=== PATIENT | male | born 1975 | race African-American/Black ===

== ENCOUNTER 2020-08-25 02:41 | Observation (INO) | payer SELFPAY ==
[2020-08-25 03:15] LABS: #Eosinphils 0.2 thou/uL (0.0-0.7); #Lymphocytes 3.7 thou/uL (1.20-3.40); #Monocytes 0.5 thou/uL (0.11-0.59); #Neutrophils 6.8 thou/uL (1.40-6.50); %Basophils 0.3 % (0.0-1.0); %Eosinophils 1.6 % (0.0-10.0); %Lymphocytes 33.3 % (21.0-51.0); %Monocytes 4.5 % (0.0-10.0); %Neutrophils 60.3 % (42.0-75.0); Hemoglobin 12.4 g/dL (14.0-18.0); Mean Corpuscular HGB CONC 32.4 g/dL (32.0-36.0); Mean Corpuscular Volume 86.7 fL (78.0-98.0); Platelet Count 221 thou/uL (130-400); RBC Distribution Width 13.8 % (11.5-14.5); Red Blood Cell (RBC) Count 4.42 mill/uL (4.70-6.10); White Blood Cell (WBC) Count 11.2 thou/uL (4.8-10.8)
[2020-08-25 03:37] LABS: ALT (SGPT) 16 U/L (8-55); AST (SGOT) 17 U/L (5-34); Albumin 3.5 g/dL (3.5-5.0); Alcohol Less than 10 mg/dL (Less than 10); Alkaline Phosphatase 44 U/L (40-110); Anion Gap 18 mmol/L (10-20); BUN (Urea Nitrogen) 16 mg/dL (8.9-20.6); Bilirubin, Total 0.4 mg/dL (0.2-1.2); CK (CPK) 207 U/L (30-200); Calc. Creatinine Clearance 0 mL/min (70-130); Carbon Dioxide 19 mmol/L (22-29); Chloride 106 mmol/L (98-107); Globulin 3.5 g/dL (2.4-3.5); Glucose 246 mg/dL (70-105); Potassium 3.4 mmol/L (3.5-5.1); Sodium 140 mmol/L (136-145)
[2020-08-25] MEDS ORDERED: Ketorolac Tromethamine 30 MG/ML VIAL ONE ×2 (04:53→04:55)
[2020-08-25] MEDS ORDERED: cloNIDine 0.1 MG TAB ONE (05:32)
[2020-08-25 05:37] LABS: Troponin I 0.022 ng/mL (< 0.028)
[2020-08-25 07:22] VITALS: BP 169/76; TEMP 97.5; BMI 39.5
--- NOTE | 2020-08-25 08:06 | CT ---
PRELIMINARY REPORT/[facility]/EMERGENCY AFTER HOURS PROCEDURE EXAM: CT Head Without Intravenous Contrast. CLINICAL HISTORY: WOKE UP WITH LEG NUMBNESS, SAYS CANT MOVE LEGS. SENSATION INTACT. FEELS ANXIOUS TECHNIQUE: Axial computed tomography images of the head/brain without intravenous contrast. COMPARISON: None provided. FINDINGS: BRAIN: No acute intraparenchymal hemorrhage. No mass lesion. No CT evidence for acute territorial infarct. N o midline shift or extra-axial collection. VENTRICLES: No hydrocephalus. ORBITS: The orbits are unremarkable. SINUSES AND MASTOIDS: Moderate opacification of the maxillary sinuses. The mastoid air cells are clear.. SOFT TISSUES: No significant facial or scalp soft tissue swelling evident. No radiopaque foreign body is seen. BONES: No acute skull fracture. IMPRESSION: No acute intracranial abnormality. ELECTRONICALLY SIGNED BY: Josette Reyes DO Aug 25, 2020 6:23:43 AM [employer] This report is intended for review by the ordering physician only, in accordance of law. If you recei ve this report in error, please call [facility] at [phone]. FINAL REPORT I agree with the preliminary report provided by [facility]. No acute intracranial abnormality d emonstrated. Transcribed Date/Time: 08/25/2020 8:49 AM
--- NOTE | 2020-08-25 08:47 | RAD ---
Exam: Chest one view HISTORY:Leg numbness. Difficulty moving legs. Anxiety. Comparison: 12/08/2019 FINDINGS: Cardiac silhouette:Cardiomegaly. Aorta: Slightly elongated aorta. Pulmonary vessels: Slightly prominent Costophrenic angles: Clear Lungs: No masses or consolidation. Pneumothorax: None Osseous abnormalities: None IMPRESSION: Cardiomegaly. Pulmonary vascular prominence. Correlate for volume overload. Transcribed Date/Time: 08/25/2020 9:10 AM
[2020-08-25 08:52] LABS: Troponin I 0.036 ng/mL (< 0.028)
[2020-08-25] MEDS ORDERED: Calcium Chloride 1 GM/10 ML Abboject SYRINGE ONE (11:55)
[2020-08-25] MEDS ORDERED: EPINEPHrine 1 MG/10 ML Abboject SYRINGE ONE (11:55)
[2020-08-25] MEDS ORDERED: Sodium Bicarb 50 MEQ/50 ML Abboject 8.4% SYRINGE ONE (11:55)
--- NOTE | 2020-08-25 12:06 | PDOC.BPN ---
- Brief Progress Note Encounter Date: 08/25/20 Encounter Time: 11:40 Code Davian called when pt was unresponsive with sudden bradycardia leading to asystole. CPR/ACLS protocol initiated and pt intubated and placed on BVM ventiliation. Epinephrine x 8 doses, bicarbonate, 1 x defibrillation, Atropine without successful ROSC. ACLS continued for approximately 25min but unable to obtain a pulse or perfusing rhythm. The patient after exhausting all ACLS protocol. I notified the pt's fiancee of pt's with the warehouse receiving supervisor, tele charge nurse present. Decedent affairs notified and decision on autopsy pending.
[2020-08-25 16:25] LABS: SARS-CoV-2 MS2 Positive; SARS-CoV-2 N Gene Negative; SARS-CoV-2 S Gene Negative; SARS-CoV-2 by NAA Not Detected (NotDetected); SARS-CoV-2 orf1ab Negative
--- NOTE | 2020-09-01 14:15 | EKG ---
Test Reason : Blood Pressure : / mmHG Vent. Rate : 061 BPM Atrial Rate : 061 BPM P-R Int : 154 ms QRS Dur : 090 ms QT Int : 510 ms P-R-T Axes : 061 -07 075 degrees QTc Int : 513 ms Sinus rhythm with occasional Premature ventricular complexes Septal infarct , age undetermined Prolonged QT Abnormal ECG Confirmed by BARTOLOME ALFARO ([id number]), editor magazine TANNER BARBOSA ([id number]) on 09/01/2020 2:15:19 PM Referred By: Confirmed By:BARTOLOME ALFARO
== END 2020-08-25 16:10 | disposition expired ==
LOC: ERS 02:41 → 2NO 05:44
PROVIDERS: ADMIT Student in an Organized Health Care Education/Training Program; ATTEND Student in an Organized Health Care Education/Training Program
DX: R20.0 Anesthesia of skin (principal); R06.02 Shortness of breath; R00.1 Bradycardia, unspecified; I46.9 Cardiac arrest, cause unspecified; I10 Essential (primary) hypertension; I25.2 Old myocardial infarction; F12.10 Cannabis abuse, uncomplicated; F15.10 Other stimulant abuse, uncomplicated; Z87.891 Personal history of nicotine dependence; Z79.01 Long term (current) use of anticoagulants; Z79.899 Other long term (current) drug therapy; Z20.828 Contact with and (suspected) exposure to other viral communicable diseases
CPT/HCPCS: 36415; 70450; 71045; 80053; 80307; 82550; 83880; 84484; 85025; 87635; 93005; 96374; G0378; J0171; J1885; U0003